=== PATIENT | male | born 1965 | race Caucasian/White ===

== ENCOUNTER 2019-04-27 21:33 | Emergency (ER) | payer OTHER ==
[~2019-04-27] VITALS: Ht 175.3 cm; Wt 83.9 kg
[2019-04-27 21:33] VITALS: Ht 175.3 cm; Wt 83.9 kg
== END 2019-04-28 00:56 | disposition expired ==
LOC: ED 21:33
DX: I46.9 Cardiac arrest, cause unspecified (principal)